=== PATIENT | female | born 1930 | race Caucasian/White ===

== ENCOUNTER 2017-02-18 06:54 | Inpatient (IN) | payer MEDICARE ==
[2017-02-18] VITALS (11 sets, daily range): BP systolic 116–166; BP diastolic 56–71; PULSE 74–103; RESP 15–19; TEMP 97.9–98.5; O2SAT 95–96
[~2017-02-18] VITALS: Ht 157.5 cm; Wt 65.0 kg
[~2017-02-18 06:54] MED LIST: ACET325 PO; ALBU8I INH; BACL10TA PO; CARB0.5D16 EACH EYE; COLA100C PO; DONE5TAB14 PO; FLUO-1 PO; KCL20 PO; LEVA250T PO; MILKSUS5 PO; OXYB5TAB PO; PANT40IN3 PO; POTA-243 PO; REME15TA PO; RIVA15 PO; RIVA20 PO; TOPI25 PO; ULTR50TA PO; VITA20002 PO
--- NOTE | 2017-02-18 07:07 | PD ---
HPI Chief Complaint: GI Complaint Time Seen by Provider: 07:07 Travel History International Travel<30 days: No Contact w/Intl Traveler<30days: No Traveled to known affect area: No History of Present Illness HPI 87-year-old female with history of dementia was sent from the custodial for rectal bleed. Patient was noticed to have one episode of bloody stool this morning seen by the staff. She appears to be pale. Patient is mostly nonverbal. She is tachycardic on the monitor but hemodynamically stable. She is awake. Does not appear to be in any significant distress. Patient had a bloody stool after arriving in the ER. I'm unable to get any history from the patient given her dementia and nonverbal state. History is mostly obtained from the paramedics and the paperwork that came from the custodial. I looked at her medical record and did not see any blood thinners mentioned. PFSH Past Medical History Narrative Medical List of her past medical, surgical, social and family history was reviewed from the nursing note. Arthritis: Yes (EXTENSIVE DEGENERATIVE ARTHRITIS) Anxiety: Yes Cardiovascular Problems: Yes High Cholesterol: Yes COPD: Yes Coronary Artery Disease: Yes Diabetes: No Diminished Hearing: No Genitourinary: Yes (CHRONIC UTI) Hypertension: Yes Inguinal Hernia: Yes Immunizations Current: Yes Past Surgical History Abdominal Surgery: Yes (HERNIA REPAIR) Appendectomy: Yes Eye Surgery: Yes (BILAT LENS IMPLANTS) Genitourinary Surgery: Yes (L NEPHRECTOMY) Hysterectomy: Yes Tonsillectomy: Yes Other Surgery: Yes (HEMRROIDECTOMY) Social History Alcohol Use: No Tobacco Use: No Substance Use: No Allergies-Medications (Allergen,Severity, Reaction): Coded Allergies: Aspirin (Verified Allergy, Severe, ULCERS, 02/18/17) Penicillin (Verified Allergy, Severe, SKIN PEELS OFF, 02/18/17) Sulfa (Verified Allergy, Severe, SKIN TURNS BLUE, 02/18/17) Codeine (Verified Allergy, Unknown, 02/18/17) Comments List of her allergies reviewed from the nursing note. Reported Meds & Prescriptions Reported Meds & Active Scripts Active Reported Ventolin Hfa 18 GM Inh (Albuterol Sulfate) 90 Mcg/Act Aer 1 Puff INH Q4H PRN Docusate Sodium 100 Mg Cap 200 Mg PO BID Artificial Tears Opth Drops (Propylene Glycol-Glycerin Opth Drops) 1-0.3% Drops 1-2 Drop EACH EYE PRN PRN Milk of Magnesia Liq (Magnesium Hydroxide) 400 Mg/5 Ml Susp 30 Ml PO DAILY PRN Robafen Dm Cough/Chest Co 10-100 mg/5Ml (Dextromethorphan-Guaifenesin) 1 Liq Liq Non-Aspirin (Acetaminophen) 325 Mg Tab 325 Mg PO Q4-6H PRN Ibuprofen 600 Mg Tab 600 Mg PO Q6H PRN Tramadol (Tramadol HCl) 50 Mg Tab 50 Mg PO Q4H PRN Potassium Chloride Liq (Potassium Chloride) 20 Meq/15 Ml Soln 20 Meq PO BID Alprazolam 0.25 Mg Tab 0.25 Mg PO Q6H PRN Incruse Ellipta Inh (Umeclidinium [place] Inh) 0.0625 Mg/Act Inh 62.5 Mcg INH DAILY Zoloft (Sertraline HCl) 50 Mg Tab 50 Mg PO DAILY Baclofen 10 Mg Tab 10 Mg PO BID Narrative Medication List of her home medications reviewed from the nursing note. Review of Systems Except as stated in HPI: all other systems reviewed are Neg Physical Exam Narrative GENERAL: Awake, alert, elderly, dementia, nonverbal SKIN: Focused skin assessment warm/dry. Pale HEAD: Atraumatic. Normocephalic. EYES: Pupils equal and round. No scleral icterus. No injection or drainage. Pallor ENT: No nasal bleeding or discharge. Mucous membranes pink and moist. NECK: Trachea midline. No JVD. CARDIOVASCULAR: Regular rate and rhythm. No murmur appreciated. RESPIRATORY: No accessory muscle use. Clear to auscultation. Breath sounds equal bilaterally. GASTROINTESTINAL: Abdomen soft, non-tender, nondistended. Hepatic and splenic margins not palpable. MUSCULOSKELETAL: No obvious deformities. No clubbing. No cyanosis. No edema. NEUROLOGICAL: Awake and alert. No obvious cranial nerve deficits. Motor grossly within normal limits. Normal speech. PSYCHIATRIC: Appropriate mood and affect; insight and judgment normal. Data Data Last Documented VS Vital Signs Date Time Temp Pulse Resp B/P Pulse Ox O2 Delivery O2 Flow Rate FiO2 02/18/17 08:15 86 116/59 02/18/17 07:14 95 Room Air 02/18/17 07:00 98.5 19 Orders Complete Blood Count With Diff (02/18/17 07:11) Comprehensive Metabolic Panel (02/18/17 07:11) Prothrombin Time / Inr (Pt) (02/18/17 07:11) Type And Screen (02/18/17 07:11) Red Blood Cells (Rbc) (02/18/17 07:11) Ecg Monitoring (02/18/17 07:11) Iv Access Insert/Monitor (02/18/17 07:11) Oximetry (02/18/17 07:11) Sodium Chlor 0.9% 1000 Ml Inj (Ns 1000 M (02/18/17 07:11) Sodium Chloride 0.9% Flush (Ns Flush) (02/18/17 07:15) Pantoprazole Inj (Protonix Inj) (02/18/17 07:15) Pantoprazole Inj (Protonix Inj) (02/18/17 07:15) Sodium Chlor 0.9% 1000 Ml Inj (Ns 1000 M (02/18/17 08:00) Admit To Inpatient (02/18/17 ) Activity Bed Rest (02/18/17 08:33) Staff Accountant / Telemetry RICARDO.Q8H (02/18/17 08:33) Intake + Output 06,14,22 (02/18/17 08:33) Resp Oxygen [place] 1-4 L (02/18/17 ) Sodium Chlor 0.9% 1000 Ml Inj (Ns 1000 M (02/18/17 09:00) Sodium Chloride 0.9% Flush (Ns Flush) (02/18/17 08:45) Sodium Chloride 0.9% Flush (Ns Flush) (02/18/17 09:00) Inpatient Certification (02/18/17 ) Admit Order (Ed Use Only) (02/18/17 08:35) Labs Laboratory Tests Test 02/18/17 07:00 White Blood Count 17.3 TH/MM3 Red Blood Count 2.41 MIL/MM3 Hemoglobin 7.0 GM/DL Hematocrit 21.2 % Mean Corpuscular Volume 88.0 FL Mean Corpuscular Hemoglobin 29.1 PG Mean Corpuscular Hemoglobin 33.0 % Concent Red Cell Distribution Width 13.8 % Platelet Count 209 TH/MM3 Mean Platelet Volume 8.6 FL Neutrophils (%) (Auto) 90.5 % Lymphocytes (%) (Auto) 4.8 % Monocytes (%) (Auto) 4.4 % Eosinophils (%) (Auto) 0.0 % Basophils (%) (Auto) 0.3 % Neutrophils # (Auto) 15.6 TH/MM3 Lymphocytes # (Auto) 0.8 TH/MM3 Monocytes # (Auto) 0.8 TH/MM3 Eosinophils # (Auto) 0.0 TH/MM3 Basophils # (Auto) 0.0 TH/MM3 CBC Comment DIFF FINAL Differential Comment Prothrombin Time 11.0 SEC Prothromb Time International 1.0 RATIO Ratio Sodium Level 140 MEQ/L Potassium Level 5.0 MEQ/L Chloride Level 111 MEQ/L Carbon Dioxide Level 20.8 MEQ/L Anion Gap 8 MEQ/L Blood Urea Nitrogen 60 MG/DL Creatinine 1.00 MG/DL Estimat Glomerular Filtration 52 ML/MIN Rate Random Glucose 110 MG/DL Calcium Level 9.4 MG/DL Total Bilirubin 0.2 MG/DL Aspartate Amino Transf 14 U/L (AST/SGOT) Alanine Aminotransferase 15 U/L (ALT/SGPT) Alkaline Phosphatase 54 U/L Total Protein 5.2 GM/DL Albumin 2.7 GM/DL Blood Type A POSITIVE Antibody Screen NEGATIVE Crossmatch Leukocyte-Reduced Red Blood Cells Blood Bank Comment MDM Medical Decision Making Medical Screen Exam Complete: Yes Emergency Medical Condition: Yes Medical Record Reviewed: Yes Differential Diagnosis Upper GI bleed, lower GI bleed Narrative Course 8:02 AM blood test results are back. Patient has leukocytosis and some acidosis. BUN is significantly high suggestive of GI bleed. I started her on Protonix bolus and drip and ordered 2 units of PRBC given her low hemoglobin. Patient also received a liter of IV fluid bolus. She will require to be admitted. Awaiting for the hospitalist to call back. 2:54 PM I was approached by the [facility] hospice service to discharge the patient from here. Patient will be going into hospice care from here. Critical Care Narrative Aggregate critical care time was 30 minutes. Time to perform other separately billable procedures was not included in the critical care time. My time did not include minutes spent treating any other patients simultaneously or on activities that did not directly contribute to the patient's treatment. The services I provided to this patient were to treat and/or prevent clinically significant deterioration that could result in: GI bleed, anemia, blood transfusion, Protonix bolus and drip I provided critical care services requiring my management, as noted below: Chart data review, documentation time, medication orders and management, vital sign assessments/reviewing monitor data, ordering and reviewing lab tests, ordering and interpreting/reviewing x-rays and diagnostic studies, care of the patient and discussion of the patient with the admitting physicians. Procedures EKG Prior to Arrival: No HemaPrompt Point of Care Comment Gross blood in stool Diagnosis Primary Impression: GI bleed Qualified Code: K92.2 - Gastrointestinal hemorrhage, unspecified gastrointestinal hemorrhage type Additional Impressions: Symptomatic anemia Dementia Qualified Code: F03.90 - Dementia without behavioral disturbance, unspecified dementia type Admitting Information Admitting Physician Requests: Admit Disposition: 51 HOSPICE/MED FACILITY Condition: Serious Shantal Hudson MD Feb 18, 2017 07:07
[2017-02-18] MEDS ORDERED: SODIUM CHLOR 0.9% 1000 ML INJ 1,000 ML IV SCH ×2 (07:11→09:00)
[2017-02-18] MEDS ORDERED: SODIUM CHLORIDE 0.9% FLUSH 10 ML FLUSH IVF PRN (07:15)
[2017-02-18] MEDS ORDERED: PANTOPRAZOLE INJ 80 MG in SODIUM CHLORIDE 0.9% INJ 35 ML IV ONE (07:15)
[2017-02-18 07:29] LABS: AUTOMATED NEUTROPHIL # 15.6 TH/MM3 (1.8-7.7); BASOPHIL % 0.3 % (0.0-2.0); HEMATOCRIT 21.2 % (35.0-46.0); HEMO FLAGS DIFF FINAL; LYMPH % 4.8 % (9.0-44.0); LYMPHOCYTE # 0.8 TH/MM3 (1.0-4.8); MEAN CORPUSCULAR HEMOGLOBIN 29.1 PG (27.0-34.0); MONO % 4.4 % (0.0-8.0); NEUT % 90.5 % (16.0-70.0); PLATELET COUNT 209 TH/MM3 (150-450); RED BLOOD COUNT 2.41 MIL/MM3 (4.00-5.30); RED CELL DISTRIBUTION WIDTH 13.8 % (11.6-17.2); WHITE BLOOD COUNT 17.3 TH/MM3 (4.0-11.0)
[2017-02-18 07:47] LABS: ALT (GPT) 15 U/L (10-53); ANION GAP 8 MEQ/L (5-15); AST (GOT) 14 U/L (15-37); BICARBONATE 20.8 MEQ/L (21.0-32.0); BLOOD UREA NITROGEN 60 MG/DL (7-18); CHLORIDE 111 MEQ/L (98-107); GLOMERULAR FILTRATION RATE 52 ML/MIN (>89); SODIUM (NA) 140 MEQ/L (136-145)
[2017-02-18 07:50] LABS: ALKALINE PHOSPHATASE 54 U/L (45-117); TOTAL BILIRUBIN ADULT 0.2 MG/DL (0.2-1.0)
[2017-02-18] MEDS ORDERED: SODIUM CHLOR 0.9% 1000 ML INJ 1,000 ML IV ONE (08:00)
[2017-02-18] MEDS: PANTOPRAZOLE INJ 80 MG in SODIUM CHLORIDE 0.9% INJ 100 ML IV SCH ×2 (08:20→17:15)
[2017-02-18] MEDS ORDERED: SODIUM CHLORIDE 0.9% FLUSH 10 ML FLUSH IV FLUSH PRN (08:45)
[2017-02-18] MEDS ORDERED: SODIUM CHLORIDE 0.9% FLUSH 10 ML FLUSH IV FLUSH SCH (09:00)
[2017-02-18] MEDS ORDERED: ONDANSETRON HCL 4 MG/2 ML VIAL IV PRN (09:15)
[2017-02-18] MEDS ORDERED: NALOXONE HCL 0.4 MG/ML AMP IV PRN (09:30)
[2017-02-18] MEDS ORDERED: ACETAMINOPHEN 325 MG TAB PO PRN (09:30)
[2017-02-18] MEDS ORDERED: MORPHINE SULFATE 4 MG/ML INJ IV PRN ×3 (09:30)
[2017-02-18] MEDS ORDERED: traMADol HCL 50 MG TAB PO PRN (09:30)
[2017-02-18] MEDS ORDERED: POTA10SO12 PO (09:40)
[2017-02-18] MEDS ORDERED: BACL10TA PO (09:40)
[2017-02-18] MEDS ORDERED: ARTIDRO EACH EYE (09:40)
[2017-02-18] MEDS ORDERED: DOCU100C PO (09:40)
[2017-02-18] MEDS ORDERED: DEXT1LIQ (09:40)
[2017-02-18] MEDS ORDERED: IBUP-232 PO (09:40)
[2017-02-18] MEDS ORDERED: NON-325T2 PO (09:40)
[2017-02-18] MEDS ORDERED: TRAM50TA PO (09:40)
[2017-02-18] MEDS ORDERED: UMEC1INH INH (09:40)
[2017-02-18] MEDS ORDERED: VENTAER INH (09:40)
[2017-02-18] MEDS ORDERED: ALPR0.25 PO (09:40)
[2017-02-18] MEDS ORDERED: ZOLO50TA PO (09:40)
[2017-02-18] MEDS ORDERED: MILKSUS PO (09:40)
[2017-02-18 10:23] LABS: REVIEW FLAG FINAL
[2017-02-18 10:27] LABS: HEMATOCRIT 17.9 % (35.0-46.0)
--- NOTE | 2017-02-18 10:30 | HHI.HP ---
HPI Service Family Medicine Primary Care Physician Unknown Admission Diagnosis GI bleed, symptomatic anemia Diagnoses: International Travel<30 Days: No Contact w/Intl Traveler<30days: No Known Affected Area: No History of Present Illness Patient is an 87-year-old female with a history of COPD, CAD, hypertension, hyperlipidemia, DVT last admission, and dementia who presents with GI bleed. Last night, at her correction, [facility], the night nurse noted hypotension and blood in her briefs. They then transferred her here to [facility]. They denied that patient was on any blood thinners or NSAIDs. However, her medication list does have ibuprofen as a when necessary medication. In the emergency department, patient was noted to have grossly bloody bowel movement (per ED attending Dr. Hudson) and a hemoglobin of 7, and she was subsequently ordered for 2 units of PRBCs to be transfused. Patient denies any pain at this time, including chest pain. She denies any shortness of breath. When asked if she would want an endoscopy or a colonoscopy, patient declined. Risks, including , and benefits were explained to patient. She still declined. Spoke with her daughter, Vera Rodriguez, at [phone], who wanted to defer to the patient. Risks, including , and benefits were again explained to daughter, who voiced understanding. Called the nursing facility [facility] at [phone], who reported that per their records patient is a DNR. Daughter Vera Rodriguez also affirmed that the patient is a DNR. She also c/o right knee pain and left wrist pain. (Edmund Hays MD R1) Review of Systems ROS Limitations: Clinical Condition (history limited by dementia), Altered Mental Status (history limited by dementia) Respiratory: DENIES: Shortness of breath Cardiovascular: DENIES: Chest pain (Edmund Hays MD R1) Past Family Social History Past Medical History COPD, CAD, hypertension, hyperlipidemia, DVT last admission, and dementia Past Surgical History Hernia repair, appendectomy bilateral lens implants left nephrectomy hysterectomy tonsillectomy and hemorrhoidectomy Reported Medications Reported Meds & Active Scripts Active Reported Ventolin Hfa 18 GM Inh (Albuterol Sulfate) 90 Mcg/Act Aer 1 Puff INH Q4H PRN Docusate Sodium 100 Mg Cap 200 Mg PO BID Artificial Tears Opth Drops (Propylene Glycol-Glycerin Opth Drops) 1-0.3% Drops 1-2 Drop EACH EYE PRN PRN Milk of Magnesia Liq (Magnesium Hydroxide) 400 Mg/5 Ml Susp 30 Ml PO DAILY PRN Robafen Dm Cough/Chest Co 10-100 mg/5Ml (Dextromethorphan-Guaifenesin) 1 Liq Liq Non-Aspirin (Acetaminophen) 325 Mg Tab 325 Mg PO Q4-6H PRN Ibuprofen 600 Mg Tab 600 Mg PO Q6H PRN Tramadol (Tramadol HCl) 50 Mg Tab 50 Mg PO Q4H PRN Potassium Chloride Liq (Potassium Chloride) 20 Meq/15 Ml Soln 20 Meq PO BID Alprazolam 0.25 Mg Tab 0.25 Mg PO Q6H PRN Incruse Ellipta Inh (Umeclidinium [place] Inh) 0.0625 Mg/Act Inh 62.5 Mcg INH DAILY Zoloft (Sertraline HCl) 50 Mg Tab 50 Mg PO DAILY Baclofen 10 Mg Tab 10 Mg PO BID (Edmund Hays MD R1) Allergies: Coded Allergies: Aspirin (Verified Allergy, Severe, ULCERS, 02/18/17) Penicillin (Verified Allergy, Severe, SKIN PEELS OFF, 02/18/17) Sulfa (Verified Allergy, Severe, SKIN TURNS BLUE, 02/18/17) Codeine (Verified Allergy, Unknown, 02/18/17) Family History Unable to obtain due to patient's mental status Social History Currently resides [facility] No reported EtOH use tobacco use or illicit drug use (Edmund Hays MD R1) Physical Exam Vital Signs Vital Signs Date Time Temp Pulse Resp B/P Pulse Ox O2 Delivery O2 Flow Rate FiO2 02/18/17 09:00 91 18 140/63 96 Room Air 02/18/17 08:15 86 116/59 02/18/17 07:14 95 Room Air 02/18/17 07:11 101 117/56 02/18/17 07:00 98.5 103 19 129/68 96 Physical Exam GENERAL: This is a well-nourished, well-developed elderly patient, who appears pale, but is resting comfortably in bed in no apparent distress. Patient smells of GI bleed. SKIN: + Pallor diffusely including in palms. No rashes, ecchymoses or lesions. Cool and dry. HEAD: Atraumatic. Normocephalic. EYES: + Subconjunctival pallor. Pupils equal round and reactive. + Arcus senilis. Extraocular motions intact. No scleral icterus. No injection or drainage. ENT: Nose without bleeding, purulent drainage or septal hematoma. Throat without erythema, tonsillar hypertrophy or exudate. Uvula midline. Airway patent. NECK: Trachea midline. No JVD or lymphadenopathy. Supple, nontender, no meningeal signs. CARDIOVASCULAR: Borderline tachycardic rate and rhythm without murmurs, gallops , or rubs. RESPIRATORY: Clear to auscultation. Breath sounds equal bilaterally. No wheezes , rales, or rhonchi. GASTROINTESTINAL: Except for some suprapubic tenderness, abdomen soft, non- tender, obese but nondistended. No guarding. GENITOURINARY: Black tarry stool surrounded by grossly red blood noted between her legs. No surrounding skin breakdown. MUSCULOSKELETAL: Extremities without clubbing, cyanosis, or edema. No joint tenderness, effusion, or edema noted. No calf tenderness. NEUROLOGICAL: Awake and alert and oriented to person and place, but not time. Cranial nerves II through XII grossly intact. Motor and sensory grossly within normal limits. Normal speech. Laboratory Laboratory Tests Test 02/18/17 02/18/17 07:00 09:50 White Blood Count 17.3 Red Blood Count 2.41 Hemoglobin 7.0 5.9 Hematocrit 21.2 17.9 Mean Corpuscular Volume 88.0 Mean Corpuscular Hemoglobin 29.1 Mean Corpuscular Hemoglobin 33.0 Concent Red Cell Distribution Width 13.8 Platelet Count 209 Mean Platelet Volume 8.6 Neutrophils (%) (Auto) 90.5 Lymphocytes (%) (Auto) 4.8 Monocytes (%) (Auto) 4.4 Eosinophils (%) (Auto) 0.0 Basophils (%) (Auto) 0.3 Neutrophils # (Auto) 15.6 Lymphocytes # (Auto) 0.8 Monocytes # (Auto) 0.8 Eosinophils # (Auto) 0.0 Basophils # (Auto) 0.0 CBC Comment DIFF FINAL Differential Comment Prothrombin Time 11.0 Prothromb Time International 1.0 Ratio Sodium Level 140 Potassium Level 5.0 Chloride Level 111 Carbon Dioxide Level 20.8 Anion Gap 8 Blood Urea Nitrogen 60 Creatinine 1.00 Estimat Glomerular Filtration 52 Rate Random Glucose 110 Calcium Level 9.4 Total Bilirubin 0.2 Aspartate Amino Transf 14 (AST/SGOT) Alanine Aminotransferase 15 (ALT/SGPT) Alkaline Phosphatase 54 Total Protein 5.2 Albumin 2.7 Blood Type A POSITIVE Antibody Screen NEGATIVE Crossmatch Leukocyte-Reduced Red Blood Cells Blood Bank Comment (Edmund Hays MD R1) Result Diagram: 02/18/17 0950 02/18/17 0700 Course In the emergency department, patient received Protonix bolus and drip, was ordered for 2 units PRBC, type and screen, PT/INR, CMP, CBC, normal saline IV bolus. (Edmund Hays MD R1) Assessment and Plan Assessment and Plan Patient is an 87-year-old female with a history of COPD, CAD, hypertension, hyperlipidemia, DVT last admission, and dementia who presents with GI bleed. When asked if she would want an endoscopy or a colonoscopy, patient declined. Risks, including , and benefits were explained to patient. She still declined. Spoke with her daughter, Vera Rodriguez, at [phone], who wanted to defer to the patient. Risks, including , and benefits were again explained to daughter, who voiced understanding. Called the [facility] at [phone], who reported that per their records patient is a DNR. Daughter Vera Rodriguez also affirmed that the patient is a DNR. Will admit patient for IV Protonix, blood transfusions. Will defer GI consult because patient and daughter do not want procedural intervention at this time. We'll place palliative care consult. Spoke to palliative care doctor weigher [employer]. He said they would see the patient. Also spoke to automobile drivers [employer] to make him aware of the patient we are sending to the ICU. Code Status DNR Discussed Condition With Patient discussed with Dr. Chauhan. (Edmund Hays MD R1) Attending Attestation Patient seen and examined, discussed with resident team. I agree with assessment and management as documented and discussed with me. The patient has been seen and examined. The chart and all resident notes have been reviewed. I agree that inpatient care is appropriate and that a two midnight stay is expected for the reasons documented in the resident history and physical. I have discussed this with the resident and certify the resident s order for inpatient admission. Patient's family has selected hospice and thus patient was transferred to hospice facility for comfort measures rather than anticipated stay of 2 midnights in the hospital. Evelyne Moreland is an 87 yo lady admitted for GI bleed with profound anemia after having bloody bowel movements. History-taking is complicated by dementia, as patient is unable to tell me why she is in the hospital. She reports occasional abdominal pain, but is unable to locate this with one finger. ROS: Complicated by dementia. Additional diagnoses: Blood loss anemia: Hemoglobin dropped to 5.9 on recheck. Anticipated transfer to ICU, but family has selected hospice. Dementia: Case discussed with daughter as per resident H&P. (Grace Chauhan MD) Problem List: (1) GI bleed Status: Acute Plan: Patient is an 87-year-old female with a history of COPD, CAD, hypertension, hyperlipidemia, DVT last admission, and dementia who presents with GI bleed. When asked if she would want an endoscopy or a colonoscopy, patient declined. Risks, including , and benefits were explained to patient. She still declined. Spoke with her daughter, Vera Rodriguez, at [phone], who wanted to defer to the patient. Risks, including , and benefits were again explained to daughter, who voiced understanding. Called the nursing facility [facility] at [phone], who reported that per their records patient is a DNR. Daughter Vera Rodriguez also affirmed that the patient is a DNR. Will admit patient for IV Protonix, blood transfusions. Will defer GI consult because patient and daughter do not want procedural intervention at this time. We'll place palliative care consult. Spoke to palliative care doctor weig[employer]. He said they would see the patient. Also spoke to automobile drivers [employer] to make him aware of the patient we are sending to the ICU. Hemoglobin of 7.0 trended down to 5.9. In emergency department, Protonix bolus and drip started, normal saline IV bolus given. Ordered for 2 units of PRBC to be transfused. Given the patient is declining procedural intervention with endoscopy and/or colonoscopy, consult palliative care. Spoke with palliative care doctor weigher production , who agreed to see the patient. Liquid diet H&H's every 6 hours CBC, CMP in the morning Continue Protonix drip for 72 hours, and then transition to Protonix 40 mg IV twice a day Sucralfate/Carafate 1 g by mouth twice a day before meals Maintenance fluids of normal saline IV at 95 mL per hour Tylenol for pain 1-2 Tramadol for pain 3-5 Morphine for pain 6-10 and for breakthrough pain Zofran for nausea or vomiting Bedrest monitor technician/telemetry Intake and output Monitor vital signs Administer oxygen as needed Hold anticonstipation medications and NSAIDs (2) COPD (chronic obstructive pulmonary disease) Status: Acute Plan: Patient with history of COPD. DuoNeb's every 4 hours when necessary for shortness of breath or wheezing (3) Osteoarthritis of right knee Status: Acute Plan: Pt c/o right knee pain, as well as left wrist pain. - pain medications as above. (4) FEN, ppx, and chronic medical problems Status: Acute Plan: Fluids: Maintenance fluids with normal saline IV and 95 mL per hour Electrolytes: Monitor and replete as necessary Nutrition: Liquid diet DVT prophylaxis: Contraindicated given GI bleed GI prophylaxis: Patient on Protonix as above Chronic medical conditions: Continue home medications except anticonstipation medications and NSAIDs (Edmund Hays MD R1) Physician Certification 2 Midnight Certification Type: Admission for Inpatient Services Order for Inpatient Services The services are ordered in accordance with Medicare regulations or non- Medicare payer requirements, as applicable. In the case of services not specified as inpatient-only, they are appropriately provided as inpatient services in accordance with the 2-midnight benchmark. Estimated LOS (days): 2 2 days is the estimated time the patient will need to remain in the hospital, assuming treatment plan goals are met and no additional complications. Post-Hospital Plan: Home (Edmund Hays MD R1) Problem Qualifiers (1) GI bleed: Qualified Code: K92.2 - Gastrointestinal hemorrhage, unspecified gastrointestinal hemorrhage type Edmund Hays MD R1 Feb 18, 2017 10:30 Grace Chauhan MD Feb 18, 2017 20:57
[2017-02-18] MEDS ORDERED: ARTIFICIAL TEARS OPTH SOLN 15 ML BTL EACH EYE PRN (10:50)
[2017-02-18] MEDS ORDERED: ALPRAZolam 0.25 MG TAB PO PRN (11:00)
[2017-02-18] MEDS ORDERED: RESP: ALBUTEROL 2.5 MG/IPRATROPIUM 0.5 MG NEB (PRN) NEB (11:45)
[2017-02-18] MEDS ORDERED: guaiFENesin/DEXTROMETHORPHAN 200 MG/20 MG/10 ML CUP PO PRN (11:45)
[2017-02-18] MEDS ORDERED: ALBUTEROL SULFATE 90 MCG/ACT HFA 18 GM INHALER INH PRN (12:45)
--- NOTE | 2017-02-18 12:47 | PD.CONS ---
Consult Service Palliative Care . Consult Requested By Dr. Hays . Primary Care Physician Dr. Roberts . Reason for Consultation a. To assist with evaluation and management of symptoms including:bleeding, abdominal pain, SOB. b. To assist medical decision maker(s) with: better understanding of current medical conditions; weighing benefits/burdens of medical treatment options; making medical treatment decisions. . (Isatu Cuevas) HPI History of Present Illness Ms. Moreland is an 87 year old female with past medical history of COPD, CAD, hypertension, hyperlipidemia, DVT last admission, and dementia. She has been a resident of [facility] for the past year. Patient presented to [facility] ER on 02/18/17 from [facility] with GI bleed, hypotension and abdominal pain. In the emergency department, patient was noted to have grossly bloody bowel movement (per ED attending Dr. Hudson) and a hemoglobin of 7, and she was subsequently ordered for 2 units of PRBCs to be transfused. Patient denied any chest pain, reported some abdominal discomfort. Unable to quantify or qualify, reports she just doesn't feel good. Denies shortness of breath. Repeat hemoglobin 5.9. Patient declines any further evaluation or workup for GI Bleed. She desires comfort focused care with hospice support. Spoke with daughter/ GABRIEL Gamez via phone ([phone]) who supports the patient wishes reporting patient has had poor quality of life and does not want life prolonging measures or procedures. If unable to return to [facility] daughter agrees to care center placement ([facility] requested after my visit, as one of pts daughter lives 5 minutes from [facility]). . Function/Cognitive Trajectory Patient with baseline dementia. Incontinent and bedbound for 1 year since a fall that put her in [facility]. Dependent for all care. . (Isatu Cuevas) Review of Systems ROS Limitations: Altered Mental Status (dementia) Constitutional: COMPLAINS OF: Fatigue, Change in appetite (decreased) Respiratory: COMPLAINS OF: Shortness of breath Gastrointestinal: COMPLAINS OF: Abdominal pain, Bloody stools Neurologic: COMPLAINS OF: Poor Balance (bedbound) Psychiatric: COMPLAINS OF: Confusion Other ROS: ROS per pt and daughter (Isatu Cuevas) Past Family Social History Coded Allergies: Aspirin (Verified Allergy, Severe, ULCERS, 02/18/17) Penicillin (Verified Allergy, Severe, SKIN PEELS OFF, 02/18/17) Sulfa (Verified Allergy, Severe, SKIN TURNS BLUE, 02/18/17) Codeine (Verified Allergy, Unknown, 02/18/17) Past Medical History COPD CAD Hypertension Hyperlipidemia DVT last admission Dementia . Past Surgical History Hernia repair Appendectomy Bilateral lens implants Left nephrectomy Hysterectomy Tonsillectomy Hemorrhoidectomy . Reported Medications Reported Meds & Active Scripts Active Reported Ventolin Hfa 18 GM Inh (Albuterol Sulfate) 90 Mcg/Act Aer 1 Puff INH Q4H PRN Docusate Sodium 100 Mg Cap 200 Mg PO BID Artificial Tears Opth Drops (Propylene Glycol-Glycerin Opth Drops) 1-0.3% Drops 1-2 Drop EACH EYE PRN PRN Milk of Magnesia Liq (Magnesium Hydroxide) 400 Mg/5 Ml Susp 30 Ml PO DAILY PRN Robafen Dm Cough/Chest Co 10-100 mg/5Ml (Dextromethorphan-Guaifenesin) 1 Liq Liq Non-Aspirin (Acetaminophen) 325 Mg Tab 325 Mg PO Q4-6H PRN Ibuprofen 600 Mg Tab 600 Mg PO Q6H PRN Tramadol (Tramadol HCl) 50 Mg Tab 50 Mg PO Q4H PRN Potassium Chloride Liq (Potassium Chloride) 20 Meq/15 Ml Soln 20 Meq PO BID Alprazolam 0.25 Mg Tab 0.25 Mg PO Q6H PRN Incruse Ellipta Inh (Umeclidinium [place] Inh) 0.0625 Mg/Act Inh 62.5 Mcg INH DAILY Zoloft (Sertraline HCl) 50 Mg Tab 50 Mg PO DAILY Baclofen 10 Mg Tab 10 Mg PO BID . Current Medications Medications (Trade) Dose Ordered Sig/Mark Route Start Time Stop Time Status Last Admin Pantoprazole Sodium 80 mg/ Sodium Chloride 100 ml @ 10 mls/hr Q10H IV 02/18/17 07:15 02/18/17 08:20 (NS 1000 ml Inj) 1,000 ml @ 95 mls/hr [id number] IV 02/18/17 09:00 02/18/17 09:17 (NS Flush) 2 ml UNSCH PRN IV FLUSH 02/18/17 08:45 (NS Flush) 2 ml BID IV FLUSH 02/18/17 09:00 (Protonix Inj) 40 mg BID IV 02/18/17 09:15 UNV (Zofran Inj) 4 mg Q6H PRN IV 02/18/17 09:15 UNV (Carafate) 1 gm BIDAC PO 02/18/17 09:15 UNV (Tylenol) 650 mg Q6H PRN PO 02/18/17 09:30 UNV (Morphine Inj) 4 mg Q3H PRN IV 02/18/17 09:30 UNV (Morphine Inj) 4 mg Q1H PRN IV 02/18/17 09:30 UNV (Morphine Inj) 4 mg Q3H PRN IV 02/18/17 09:30 UNV (Ultram) 50 mg Q4H PRN PO 02/18/17 09:30 UNV (Narcan Inj) 0.4 mg UNSCH PRN IV 02/18/17 09:30 UNV (Proair Hfa Inh) 1 puff Q4H PRN INH 02/18/17 11:00 UNV (Xanax) 0.25 mg Q6H PRN PO 02/18/17 11:00 UNV (Lioresal) 10 mg BID PO 02/18/17 21:00 UNV (Tears Naturale Opth Soln) 1050 PRN EACH EYE 02/18/17 10:50 UNV (Zoloft) 50 mg DAILY PO 02/18/17 10:50 UNV Non-Formulary Medication 62.5 mcg DAILY INH 02/18/17 10:50 UNV (Robitussin Dm 200-20 Mg/10 ml Liq) 10 ml Q6H PRN PO 02/18/17 11:45 UNV . Family History Patient with dementia unable to provide family history. . Substance Use Tobacco: Never smoked. Alcohol: None. Prescription med abuse:None. Illicits:None. . (Isatu Cuevas) Psychosocial History 3 daughters, 1 son- estranged from 2 daughters . Spiritual/Cultural Factors Mu-Ism. . (Ruth Moreno GENERAL PARTNER, TOWER OBSERVER) Ethical and Legal Issues Patient with underlying dementia, recommend shared decision making at this time. Patient verbalizes she wants me to speak with daughter Vera (designated HCS). Power of Manager Package for Health Care is designated as daughter, Vera Rodriguez. Copy sent to HIM to be scanned into EMR. . (Isatu Cuevas) Living Will: Never completed Health Care Surrogate: Copy in medical record Durable Power of Manager Package: Copy in medical record Date completed: * Durable Power of Manager Package for financial and health care completed July. * Community DNR completed August 07, 2016. . Health Care Surrogate(s): Designated health care surrogate: Vera Rodriguez, daughter: #[phone] or #[phone] . (Ruth Moreno GENERAL PARTNER, TOWER OBSERVER) Physical Exam Vital Signs Date Time Temp Pulse Resp B/P Pulse Ox O2 Delivery O2 Flow Rate FiO2 02/18/17 11:55 98.2 84 19 161/71 95 Room Air 02/18/17 11:47 95 21 02/18/17 11:35 98.1 79 18 144/66 95 Room Air 02/18/17 11:20 98.0 74 18 148/69 95 Room Air 02/18/17 09:00 91 18 140/63 96 Room Air 02/18/17 08:15 86 116/59 02/18/17 07:14 95 Room Air 02/18/17 07:11 101 117/56 02/18/17 07:00 98.5 103 19 129/68 96 Exam CONSTITUTIONAL/GENERAL: This is an elderly, frail, pale patient, in no apparent distress. TUBES/LINES/DRAINS: PIV. SKIN: Pale color. No jaundice, rashes, or lesions. Ecchymoses on upper extremities. No wounds seen anteriorly. Skin temperature appropriate. Not diaphoretic. HEAD: Atraumatic. Normocephalic. EYES: Pupils equal and round and reactive. Extraocular motions intact. No scleral icterus. No injection or drainage. Fundi not examined. ENT: Hearing grossly normal. Nose without bleeding or purulent drainage. Thick oral secretions noted. NECK: Trachea midline. Supple, nontender. CARDIOVASCULAR: Regular rate and rhythm without murmurs, gallops, or rubs. No JVD. Peripheral pulses symmetric. RESPIRATORY/CHEST: Symmetric, unlabored respirations. Clear to auscultation. Diminished breath sounds. GASTROINTESTINAL: Abdomen soft, tender, mildly distended. No guarding. Bowel sounds hyperactive. GENITOURINARY: Without palpable bladder distension. MUSCULOSKELETAL: Extremities without clubbing, cyanosis, or edema. No mottling or clubbing. LYMPHATICS: No palpable cervical or supraclavicular adenopathy. NEUROLOGICAL: Awakens easily. Forgetful. Follows commands. Moves all extremities. PSYCHIATRIC: No obvious anxiety/depression. no apparent hallucinations or other psychotic thought process. . (Isatu Cuevas) Diagnostic Tests Laboratory Laboratory Tests Test 02/18/17 02/18/17 02/18/17 07:00 09:50 10:47 White Blood Count 17.3 TH/MM3 (4.0-11.0) Red Blood Count 2.41 MIL/MM3 (4.00-5.30) Hemoglobin 7.0 GM/DL 5.9 GM/DL (11.6-15.3) (11.6-15.3) Hematocrit 21.2 % 17.9 % (35.0-46.0) (35.0-46.0) Mean Corpuscular Volume 88.0 FL (80.0-100.0) Mean Corpuscular Hemoglobin 29.1 PG (27.0-34.0) Mean Corpuscular Hemoglobin 33.0 % Concent (32.0-36.0) Red Cell Distribution Width 13.8 % (11.6-17.2) Platelet Count 209 TH/MM3 (150-450) Mean Platelet Volume 8.6 FL (7.0-11.0) Neutrophils (%) (Auto) 90.5 % (16.0-70.0) Lymphocytes (%) (Auto) 4.8 % (9.0-44.0) Monocytes (%) (Auto) 4.4 % (0.0-8.0) Eosinophils (%) (Auto) 0.0 % (0.0-4.0) Basophils (%) (Auto) 0.3 % (0.0-2.0) Neutrophils # (Auto) 15.6 TH/MM3 (1.8-7.7) Lymphocytes # (Auto) 0.8 TH/MM3 (1.0-4.8) Monocytes # (Auto) 0.8 TH/MM3 (0-0.9) Eosinophils # (Auto) 0.0 TH/MM3 (0-0.4) Basophils # (Auto) 0.0 TH/MM3 (0-0.2) CBC Comment DIFF FINAL Differential Comment Prothrombin Time 11.0 SEC (9.8-11.6) Prothromb Time International 1.0 RATIO Ratio Sodium Level 140 MEQ/L (136-145) Potassium Level 5.0 MEQ/L (3.5-5.1) Chloride Level 111 MEQ/L (98-107) Carbon Dioxide Level 20.8 MEQ/L (21.0-32.0) Anion Gap 8 MEQ/L (5-15) Blood Urea Nitrogen 60 MG/DL (7-18) Creatinine 1.00 MG/DL (0.50-1.00) Estimat Glomerular Filtration 52 ML/MIN (>89) Rate Random Glucose 110 MG/DL (74-106) Calcium Level 9.4 MG/DL (8.5-10.1) Total Bilirubin 0.2 MG/DL (0.2-1.0) Aspartate Amino Transf 14 U/L (15-37) (AST/SGOT) Alanine Aminotransferase 15 U/L (10-53) (ALT/SGPT) Alkaline Phosphatase 54 U/L (45-117) Total Protein 5.2 GM/DL (6.4-8.2) Albumin 2.7 GM/DL (3.4-5.0) Blood Type A POSITIVE A POSITIVE Antibody Screen NEGATIVE Crossmatch Leukocyte-Reduced Red Blood Cells Blood Bank Comment (Isatu Cuevas) Result Diagram: 02/18/17 0950 02/18/17 0700 Patient/Family Conference Present at Family Conference: Met with patient at bedside. Also present Ruth Moreno LCSW. Spoke with Vera grigsby via phone. . Family Conference Time (mins): 45 Family Conference Location: Bedside, Telephone Issues Discussed: * Palliative care role, purpose, approach * Additional medical, psychosocial, and spiritual history * Patients general health, functional status, and cognitive changes in the months leading up to the current hospitalization * Patient/family understanding of the current medical problems * Patient/family understanding of prognosis * Patients goals of care as best understood from advance directives and/or conversations and/or values * Current medical treatment options and benefits/burdens of those options * Likely scenarios comparing ongoing aggressive care with a transition to comfort measures only * Questions answered to the best of my ability * Palliative care contact information provided Patient declines any further evaluation or workup for GI Bleed. She desires comfort focused care with hospice support. Spoke with daughter/ HCS Vera via phone ([phone]) who supports the patient wishes reporting patient has had poor quality of life and does not want life prolonging measures or procedures. If unable to return to [facility] daughter agrees to care center placement ([facility] requested). Daughter has gotten a flight coming to [facility] 02/19/17. Email consents to seb . . (Isatu Cuevas) Assessment and Plan Disease Oriented Problem List: (1) GI bleed Comment: declines further evaluation . (2) COPD (chronic obstructive pulmonary disease) (3) Dementia (4) Symptomatic anemia Symptom Scale: (1) GI bleed 0-10 Scale: Unable to quantify (2) Abdominal pain 0-10 Scale: Unable to quantify (3) Dyspnea 0-10 Scale: Unable to quantify Pertinent Non-Medical Issues Psychosocial: . Resident of [facility]. Supported by her daughter Vera who lives in [place], [place]. Estranged from other 2 daughters and 1 son. Spiritual: Mu-Ism Alicja. Legal: Patient with underlying dementia, recommend shared decision making at this time. Patient verbalizes she wants me to speak with seb Gamez ( designated HCS). Power of Manager Package for Health Care is designated as Vera grigsby. Copy sent to HIM to be scanned into EMR. Ethical issues impacting care: No known concerns at this time. . Important Contacts * Vera Rodriguez,daughter/ HCS: [phone] . Prognosis This is an elderly female with dementia admitted with GI bleed patient declines GI evaluation. Hospice appropriate given goals, advanced age and active bleed. . Code Status: No Code Plan * Patient with underlying dementia, recommend shared decision making at this time. Patient verbalizes she wants me to speak with seb Gamez (designated HCS). Power of Manager Package for Health Care is designated as Vera grigsby. Copy sent to HIM to be scanned into EMR. * NO CODE * Patient declines any further evaluation or workup for GI Bleed. She desires comfort focused care with hospice support. Spoke with daughter/ GABRIEL Gamez via phone ([phone]) who supports the patient wishes reporting patient has had poor quality of life and does not want life prolonging measures or procedures. If unable to return to [facility] daughter agrees to care center placement ([facility] requested). Daughter has gotten a flight coming to [facility] 02/19/17. Email consents to daughter Vera * Hospice consulted. * DC when arrangements made by Hospice. * SYMPTOMS: Abd pain: due to GI bleed. Stomach just "doesn't feel right." Unable to quantify or qualify. Dyspnea: denies SOB during my visit, appears dyspneic with prolonged conversation. Very weak and pale. Bleeding: GI bleed active rectal bleeding per nursing staff. Getting 2 units PRBCs, hemoglobin dropping despite transfusion. Comfort orders per Hospice attending. * Palliative care number provided. * Palliative care will follow. . (Isatu Cuevas) Thank you for the opportunity to participate in the care of Ms. Moreland. (Isatu Cuevas) Attestation To help prompt me to consider important information that might be impacting today's encounter and assessment, information from prior notes written by myself or my colleagues may have been "brought forward" into today's note. My signature on this note, however, is an attestation that I personally performed the exam, history, and/or decision-making noted today, and, unless otherwise indicated, the interactions with patient, family, and staff as well as the review of records all occurred today. I also attest that the listed assessment and stated plan reflect my best clinical judgment today based on the combination of historical information, prior notes, and today's exam/ interactions. When time spent is documented, it refers only to time spent today by the signer, or if indicated, combined time spent today by collaborating physician/nurse practitioner. (Isatu Cuevas) Isatu Cuevas Feb 18, 2017 12:46 Ruth Moreno GENERAL PARTNER, TOWER OBSERVER Feb 18, 2017 14:19
[2017-02-18] MEDS ORDERED: SERTRALINE HCL 50 MG TAB PO SCH (13:00)
[2017-02-18] MEDS: SUCRALFATE 1 GM TAB PO SCH ×2 (13:39→15:56)
[2017-02-18] MEDS ORDERED: PANTOPRAZOLE SODIUM 40 MG VIAL IV SCH (14:00)
[2017-02-18] MEDS ORDERED: UMECLIDINIUM BROMIDE 62.5 MCG INH SCH (15:00)
[2017-02-18 17:09] LABS: HEMATOCRIT 23.1 % (35.0-46.0); REVIEW FLAG FINAL
[2017-02-18] MEDS ORDERED: BACLOFEN 10 MG TAB PO SCH (21:00)
== END 2017-02-18 19:30 | disposition hospice, inpatient (51) | DRG 379 ==
LOC: NEPE 06:54 → NEDA 08:37
PROVIDERS: ADMIT Family Medicine; ATTEND Family Medicine
PROC: 30233N1 Transfusion of Nonautologous Red Blood Cells into Peripheral Vein, Percutaneous Approach (ICD-10-PCS; principal; 2017-02-18)
DX: K92.2 Gastrointestinal hemorrhage, unspecified (principal); J44.9 Chronic obstructive pulmonary disease, unspecified; F03.90 Unspecified dementia, unspecified severity, without behavioral disturbance, psychotic disturbance, mood disturbance, and anxiety; I25.10 Atherosclerotic heart disease of native coronary artery without angina pectoris; I10 Essential (primary) hypertension; E78.5 Hyperlipidemia, unspecified; D50.0 Iron deficiency anemia secondary to blood loss (chronic); M17.11 Unilateral primary osteoarthritis, right knee; M25.532 Pain in left wrist; Z66 Do not resuscitate; Z86.718 Personal history of other venous thrombosis and embolism; Z51.5 Encounter for palliative care
CPT/HCPCS: 36430; 80053; 85014; 85018; 85025; 85610; 86850; 86900; 86901; 86920; 96365; C9113; J7030; P9016; P9040